=== PATIENT | male | born 1950 | race Caucasian/White ===

== ENCOUNTER 2017-02-23 16:53 | Emergency (ER) | payer MEDICARE, OTHER ==
[2017-02-23 17:03] VITALS: BP 166/88; PULSE 64; RESP 20; TEMP 98.4; O2SAT 94
[2017-02-23] MEDS ORDERED: ASPI81TA23 PO (17:21)
[2017-02-23] MEDS ORDERED: GABA100C4 PO (17:21)
[2017-02-23] MEDS ORDERED: FENT75DI T-DERMAL (17:21)
[2017-02-23] MEDS ORDERED: LIPI80TA PO (17:21)
[2017-02-23] MEDS ORDERED: CLON.5 PO (17:21)
[2017-02-23] MEDS ORDERED: MORPHINE SULFATE 4 MG/ML INJ IV PUSH ONE (17:30)
--- NOTE | 2017-02-23 17:30 | PD ---
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 Said he woke up with it and did not fall or have any trauma. [place] that it is a little more swollen than left. There is a very well demarcated red line that they noticed today. Pain is localized, nonradiating, sharp and worst with movement. Denies any fever, chest pain, sob , n/v, abdominal pain. PFSH Past Medical History High Cholesterol: Yes Cerebrovascular Accident: Yes (R EYE PERSIFERAL VISION) Coronary Artery Disease: Yes Medical other: Yes (RIGHT LEG NERVE DAMAGE/CHRONIC BACK PAIN) Tetanus Vaccination: Unknown Influenza Vaccination: Yes Past Surgical History Cardiac Surgery: Yes (CARODID ARTERY SX) Joint Replacement: Yes (RIGHT HIP) Other Surgery: Yes (EYE LID SX) Social History Alcohol Use: No Tobacco Use: Yes (1 PPD) Substance Use: No Allergies-Medications (Allergen,Severity, Reaction): Coded Allergies: diphenhydramine (Verified Allergy, Unknown, 02/23/17) protamine (Verified Allergy, Unknown, 02/23/17) Reported Meds & Prescriptions Reported Meds & Active Scripts Active Ibuprofen 600 Mg Tab 600 Mg PO Q8HR PRN Reported Gabapentin 100 Mg Cap 200 Mg PO HS Aspirin EC (Aspirin) 81 Mg Tabdr 81 Mg PO DAILY Lipitor (Atorvastatin Calcium) 80 Mg Tab 80 Mg PO HS Klonopin (Clonazepam) 0.5 Mg Tab 0.5 Mg PO HS Fentanyl Patch 72 HR (Fentanyl) 75 Mcg/Hr Patch 75 Mcg T-DERMAL Q72H Remove old patch when new one placed. Review of Systems Except as stated in HPI: all other systems reviewed are Neg Physical Exam Narrative GENERAL: 67yo M not in distress. SKIN: Focused skin assessment warm/dry. HEAD: Atraumatic. Normocephalic. EYES: Pupils equal and round. No scleral icterus. No injection or drainage. CARDIOVASCULAR: Regular rate and rhythm. No murmur appreciated. RESPIRATORY: No accessory muscle use. Clear to auscultation. Breath sounds equal bilaterally. GASTROINTESTINAL: Abdomen soft, non-tender, nondistended. MUSCULOSKELETAL: Right hip: +Surgical scar well healed with no erythema, or discharge. There is a straight, well demarcated red horizontal line. Skin is otherwise not red or hot to touch. +TTP proximal femur. Sensation intact and is less than left but has been that way since stroke. DP 1+. NEUROLOGICAL: Awake and alert. No obvious cranial nerve deficits. Motor grossly within normal limits. Normal speech. PSYCHIATRIC: Appropriate mood and affect; insight and judgment normal. Data Data Last Documented VS Vital Signs Date Time Temp Pulse Resp B/P (MAP) Pulse Ox O2 Delivery O2 Flow Rate FiO2 02/23/17 20:25 58 16 186/88 (120) 02/23/17 19:30 92 02/23/17 18:13 Room Air 02/23/17 17:03 98.4 Orders Orders Complete Blood Count With Diff (02/23/17 17:23) Basic Metabolic Panel (Bmp) (02/23/17 17:23) Lactic Acid Sepsis Protocol (02/23/17 17:23) Ct Hip W Iv Contrast (02/23/17 ) Morphine Inj (Morphine Inj) (02/23/17 17:30) Diazepam (Valium) (02/23/17 18:30) Iohexol 350 Inj (Omnipaque 350 Inj) (02/23/17 19:00) Ketorolac Inj (Toradol Inj) (02/23/17 20:00) Ed Discharge Order (02/23/17 19:51) Labs Laboratory Tests Test 02/23/17 17:35 02/23/17 18:05 White Blood Count 8.6 TH/MM3 Red Blood Count 4.22 MIL/MM3 Hemoglobin 12.8 GM/DL Hematocrit 39.9 % Mean Corpuscular Volume 94.7 FL Mean Corpuscular Hemoglobin 30.3 PG Mean Corpuscular Hemoglobin Concent 32.0 % Red Cell Distribution Width 13.2 % Platelet Count 196 TH/MM3 Mean Platelet Volume 9.1 FL Neutrophils (%) (Auto) 55.6 % Lymphocytes (%) (Auto) 35.6 % Monocytes (%) (Auto) 5.8 % Eosinophils (%) (Auto) 2.3 % Basophils (%) (Auto) 0.7 % Neutrophils # (Auto) 4.7 TH/MM3 Lymphocytes # (Auto) 3.1 TH/MM3 Monocytes # (Auto) 0.5 TH/MM3 Eosinophils # (Auto) 0.2 TH/MM3 Basophils # (Auto) 0.1 TH/MM3 CBC Comment DIFF FINAL Differential Comment Lactic Acid Level 1.0 mmol/L Blood Urea Nitrogen 21 MG/DL Creatinine 0.94 MG/DL Random Glucose 74 MG/DL Calcium Level 8.4 MG/DL Sodium Level 136 MEQ/L Potassium Level 4.3 MEQ/L Chloride Level 101 MEQ/L Carbon Dioxide Level 31.7 MEQ/L Anion Gap 3 MEQ/L Estimat Glomerular Filtration Rate 80 ML/MIN MDM Medical Decision Making Medical Screen Exam Complete: Yes Emergency Medical Condition: Yes Differential Diagnosis Fracture vs. bursitis vs. musculoskeletal pain vs. septic joint (low suspicion, pt has no fever, erythema, and not toxic appearing) Narrative Course 67yo M with right hip pain for 3 days. Pt is well appearing with no other symptoms. No trauma. Labs reviewed, no leukocytosis. Lactic acid normal. CT right hip showed no definite acute bony findings. Likely minimal bursal fluid lateral to right hip. Right iliac occlusion. Pt knows about his peripheral artery disease and has a vascular surgeon they follow up with. Pt has bilateral distal pulses and both legs are not cold. Pt given morphine, valium and toradol with improvement of pain. Improved range of motion. Pt able to ambulate. Impression is bursitis of right hip. Pt instructed to follow up with orthopedic clinic tomorrow if pain persists. Return precautions given. Diagnosis Primary Impression: Right hip pain Referrals: Jose aHndy Jr., MD call for appointment Patient Instructions: General Instructions Departure Forms: Tests/Procedures Additional Instructions: Please follow up with orthopedic clinic tomorrow if pain persists. Return to the ED if symptoms worsen. Med/Other Pt SpecificInfo: Prescription(s) given Scripts Ibuprofen (Ibuprofen) 600 Mg Tab 600 MG PO Q8HR Y for PAIN, #20 TAB 0 Refills Prov: Petra Kohli DO 02/23/17 Disposition: 01 DISCHARGE HOME Condition: Stable Petra Kohli DO Feb 23, 2017 17:30
[2017-02-23 18:02] LABS: AUTOMATED NEUTROPHIL # 4.7 TH/MM3 (1.8-7.7); BASOPHIL # 0.1 TH/MM3 (0-0.2); BASOPHIL % 0.7 % (0.0-2.0); EOSINOPHIL # 0.2 TH/MM3 (0-0.4); EOSINOPHIL % 2.3 % (0.0-4.0); HEMATOCRIT 39.9 % (39.0-51.0); HEMOGLOBIN 12.8 GM/DL (13.0-17.0); LYMPH % 35.6 % (9.0-44.0); LYMPHOCYTE # 3.1 TH/MM3 (1.0-4.8); MEAN CELL VOLUME 94.7 FL (80.0-100.0); MEAN CORPUSCULAR HEMOGLOBIN 30.3 PG (27.0-34.0); MEAN PLATELET VOLUME 9.1 FL (7.0-11.0); MONO % 5.8 % (0.0-8.0); MONOCYTE # 0.5 TH/MM3 (0-0.9); NEUT % 55.6 % (16.0-70.0); PLATELET COUNT 196 TH/MM3 (150-450); RED BLOOD COUNT 4.22 MIL/MM3 (4.50-5.90); RED CELL DISTRIBUTION WIDTH 13.2 % (11.6-17.2); WHITE BLOOD COUNT 8.6 TH/MM3 (4.0-11.0)
[2017-02-23 18:13] VITALS: BP 150/82; PULSE 57; RESP 16; O2SAT 100
[2017-02-23 18:28] LABS: BICARBONATE 31.7 MEQ/L (21.0-32.0); CALCIUM 8.4 MG/DL (8.5-10.1)
[2017-02-23] MEDS ORDERED: DIAZEPAM 5 MG TAB PO ONE (18:30)
[2017-02-23 18:32] LABS: CREATININE 0.94 MG/DL (0.60-1.30)
[2017-02-23] MEDS ORDERED: IOHEXOL 350 MG/ML 10 ML VIAL (for RAD DIAG) IVCONTRAST ONE (19:00)
[2017-02-23 19:30] VITALS: BP 181/96; PULSE 59; RESP 16; O2SAT 92
--- NOTE | 2017-02-23 19:30 | RADRPT ---
EXAM DATE/TIME: 02/23/2017 18:41 [facility] COMPARISON: No previous studies available for comparison. INDICATIONS : Right lateral hip pain and swelling x 3 days. IV CONTRAST: 85 cc Omnipaque 350 (iohexol) IV RADIATION DOSE: 16.00 CTDIvol (mGy) MEDICAL HISTORY : Cerebrovascular disease. SURGICAL HISTORY : Carotid endarterectomy. Right hip replacement. ENCOUNTER: Initial ACUITY: 3 days PAIN SCALE: 7/10 LOCATION: Right hip TECHNIQUE: Volumetric scanning of the hip was performed. Using automated exposure control and adjustment of the mA and/or kV according to patient size, radiation dose was kept as low as reasonably achievable to o btain optimal diagnostic quality images. DICOM format image data is available electronically for rev iew and comparison. FINDINGS: Detail is obscured by streak artifact from right total hip arthroplasty hardware. The hardware appear s intact. Alignment is anatomic. There is no evidence of fracture or destructive change. No acute bon y findings. No significant degenerative change in the visualized lower lumbar spine, largely involvin g the posterior facets area there is arthritic change in the contralateral left hip. There may be minimal bursal fluid lateral to the right hip greater trochanter. No evidence of mass or significant collection. Within the pelvis, note is made of severe atherosclerotic vascular disease with occlusion of the righ t iliac artery. No pelvic mass or adenopathy is noted. CONCLUSION: No definite acute bony findings. Likely minimal bursal fluid lateral to the right hip. Right iliac occlusion Sherman Coronado MD on February 23, 2017 at 19:14 Board Certified Radiologist. This report was verified electronically.
[2017-02-23] MEDS ORDERED: IBUP-232 PO (19:51)
[2017-02-23] MEDS ORDERED: KETOROLAC TROMETHAMINE 30 MG/ML (IVP) VIAL IV PUSH ONE (20:00)
[2017-02-23 20:25] VITALS: BP 186/88
== END 2017-02-23 20:28 | disposition home or self-care (01) ==
LOC: PHED 16:53
DX: M25.551 Pain in right hip (principal); I25.10 Atherosclerotic heart disease of native coronary artery without angina pectoris; F17.200 Nicotine dependence, unspecified, uncomplicated
CPT/HCPCS: 73701; 80048; 83605; 85025; 96374; 96375; 99285; J1885; J2270; Q9967